=== PATIENT | female | born 1985 | race Caucasian/White ===

== ENCOUNTER 2018-07-10 10:09 | Inpatient (IN) | payer OTHER ==
[2018-07-10 10:52] VITALS: BMI 28.8
[2018-07-10 11:57] LABS: Hemoglobin 9.4 g/dL (12.0-16.0); Mean Corpuscular HGB CONC 31.7 g/dL (32.0-36.0); Mean Corpuscular Hemoglobin 24.9 pg (27.0-31.0); Mean Corpuscular Volume 78.6 fL (78.0-98.0); Mean Platelet Volume 11.4 fL (7.4-10.4); Platelet Count 224 thou/uL (130-400); RBC Distribution Width 18.1 % (11.5-14.5); Red Blood Cell (RBC) Count 3.79 mill/uL (4.20-5.40); White Blood Cell (WBC) Count 8.8 thou/uL (4.8-10.8)
[2018-07-10] MEDS ORDERED: Ondansetron PF 4 MG/2 ML Vial IVP PRN ×2 (12:23→14:45)
[2018-07-10] MEDS ORDERED: Promethazine HCl 25 MG/ML VIAL IM PRN ×3 (12:23→17:26)
[2018-07-10] MEDS ORDERED: Morphine PF 1 MG/ML SYR ONE (12:25)
[2018-07-10] MEDS ORDERED: Ondansetron PF 4 MG/2 ML Vial ONE (12:26)
[2018-07-10] MEDS ORDERED: PHENYLEPHRINE-NS 100 MCG/ML 10 ML SYRINGE ONE (12:26)
[2018-07-10] MEDS ORDERED: Oxytocin 10 UNITS/ML VIAL ONE ×2 (12:26→12:34)
[2018-07-10] MEDS ORDERED: CEFAZOLIN 2 GM/50 ML BAG ONE (12:26)
[2018-07-10] MEDS ORDERED: Ketorolac Tromethamine 30 MG/ML VIAL ONE (12:26)
[2018-07-10] MEDS ORDERED: Bicitra 30 ML UDCUP ONE ×2 (12:27)
[2018-07-10] MEDS ORDERED: Lactated Ringer's 1,000 ML IV SCH (12:30)
[2018-07-10] MEDS ORDERED: CEFAZOLIN 2 GM/50 ML BAG IVPB SCH (12:30)
[2018-07-10] MEDS ORDERED: Bicitra 30 ML UDCUP PO SCH (12:30)
[2018-07-10 13:30] LABS: Syphilis Antibody Nonreactive (Nonreactive); Syphilis Antibody Index 0.03 S/CO (<1.00 Non-Reactive)
[2018-07-10 13:31] LABS: Hep B Surf Ag Non-Reactive S/CO (NonReactive)
[2018-07-10] MEDS ORDERED: diphenhydrAMINE 50 MG/ML VIAL IVP PRN (14:45)
[2018-07-10] MEDS ORDERED: Naloxone HCl 0.4 mg/ml Vial IVP PRN ×2 (14:45)
[2018-07-10] MEDS ORDERED: Eucerin (Mineral Oil/Petrolatum,White) 30 gm Jar TOP PRN (14:45)
[2018-07-10] MEDS ORDERED: Ondansetron HCl/PF 4 MG/2 ML Vial IVP PRN (14:45)
[2018-07-10] MEDS ORDERED: Ketorolac Tromethamine 30 MG/ML VIAL IVP PRN (14:45)
[2018-07-10] MEDS ORDERED: Communication Order-Pharmacy FS SCH (14:45)
[2018-07-10] MEDS ORDERED: Promethazine HCl 25 MG SUPP PR PRN (14:45)
[2018-07-10] MEDS ORDERED: Ketorolac Tromethamine 30 MG/ML VIAL IVP SCH (14:45)
[2018-07-10] MEDS ORDERED: Naloxone HCl 0.4 mg/ml Vial IV PRN (14:45)
[2018-07-10] MEDS ORDERED: L&D-Morphine 4 MG/ML VIAL SLOW IVP PRN (14:45)
[2018-07-10] MEDS ORDERED: Meperidine HCl/PF 25 MG/ML VIAL SLOW IVP PRN (14:45)
[2018-07-10] MEDS ORDERED: HYDROmorphone 2 MG/ML VIAL SLOW IVP PRN (14:45)
[2018-07-10] MEDS ORDERED: NS / Oxytocin 40 units/1000ml 1,000 ML ONE (15:37)
--- NOTE | 2018-07-10 16:42 | PDOC.LDHP ---
Labor and Delivery H&P Chief complaint: scheduled section Current gestational age (weeks): 39 Due date: 07/16/18 Grav: 2 Para: 1 Current complications: none Abnormal US findings: No Previous surgical history: low tranverse CS Allergies/Adverse Reactions: Allergies Allergy/AdvReac Type Severity Reaction Status Date / Time No Known Allergies Allergy Unverified 07/10/18 10:50 Social history: none - Physical Exam Vital signs reviewed and normal: yes General: NAD Heart: RRR Lungs: CTAB Abdomen: gravid Extremeties: no edema FHT: category 1 - Assessment L&D Assessment: scheduled repeat section - Plan Plan: admit to L&D, to OR for section
[2018-07-10] MEDS ORDERED: NS / Oxytocin 40 units/1000ml 1,000 ML IV SCH (17:26)
[2018-07-10] MEDS ORDERED: Bisacodyl 10 MG SUPP PR PRN (17:26)
[2018-07-10] MEDS ORDERED: Adacel (T-DAP) 0.5 ML SYRINGE IM ONE (17:26)
[2018-07-10] MEDS ORDERED: diphenhydrAMINE 25 MG CAP PO PRN (17:26)
[2018-07-10] MEDS ORDERED: Lanolin Ointment 7 GM TUBE TOP PRN (17:26)
[2018-07-10] MEDS ORDERED: Varicella virus, LIVE 0.5 ML VIAL SC ONE (17:26)
[2018-07-10] MEDS ORDERED: Measles/Mumps/Rubella 10 MCG/0.5 ML VIAL SC ONE (17:26)
[2018-07-10] MEDS: Ketorolac Tromethamine 30 MG/ML VIAL IVP PRN (20:30)
[2018-07-10] MEDS: Lactated Ringer's 1,000 ML IV SCH (20:31)
[2018-07-10] MEDS: Ondansetron PF 4 MG/2 ML Vial IVP PRN (20:34)
[2018-07-10] MEDS ORDERED: Ibuprofen 800 MG TAB PO SCH (22:00)
--- NOTE | 2018-07-11 00:38 | OP ---
DATE OF PROCEDURE: 07/10/2018 PREOPERATIVE DIAGNOSES: Intrauterine at 39 weeks with a history of previous section and declined vaginal after section. POSTOPERATIVE DIAGNOSES: Intrauterine at 39 weeks with a history of previous section and declined vaginal after section. PROCEDURE PERFORMED: Repeat low transverse section using a Pfannenstiel skin incision. FINDINGS: Viable male infant weighing 3745 g or 8 pounds 4 ounces. Apgars of 9 and 9. QUANTITATIVE BLOOD LOSS: 585 mL. COMPLICATIONS: None. DETAILS OF THE PROCEDURE: The patient was consented and taken back to the operating room where spinal anesthesia was found to be adequate. She was then prepped and draped in the normal sterile fashion. A timeout was performed by the entire operative team. The incision was then marked with a marking pen tested using sharp pickups. An incision was then made with a scalpel. The incision was carried through the adipose tissue down to the underlying rectus fascia using both sharp dissection as well as cautery. Once the fascia was identified, it was incised in the midline and then the fascial incision was carried through in both lateral directions using sharp as well as cautery dissection techniques. Next, the superior aspect of the rectus fascia was grasped with 2 Natalie clamps, which was tented up and the rectus muscles were dissected off using blunt dissection as well as cautery dissection. Similarly, the inferior aspect of the fascial incision was grasped with 2 Natalie clamps, tented up and the rectus muscles were dissected off bluntly as well as sharply. Next, the rectus muscles were in the midline and the peritoneum identified. The peritoneum was then carefully grasped with 2 hemostats and entered sharply. The peritoneal incision was extended superiorly and inferiorly and bladder blade was placed in the lower abdomen. At this point, the uterus was identified and the bladder flap was then developed using pickups with teeth as well as Metzenbaum scissors in both lateral directions. The bladder flap was then dissected downwards using the clamp carrier operator's finger as well as Metzenbaum scissors. The bladder blade was replaced. The lower uterine segment was then identified and entered sharply using a clean scalpel. The uterine incision was then dissected downwards until thin layer of muscle remained and this was entered bluntly using a hemostat to avoid any injury to the baby. The uterine incision was then stretched using two fingers in both lateral directions. An amniotomy was performed artificially using a hemostat and the baby was delivered using fundal pressure in a gentle fashion. Once out, the baby's mouth and nose were bulb suctioned, cord clamped and cut, and the baby was handed to waiting attendants. Next, the uterus was exteriorized, cleared of all clots and debris and the uterine incision was repaired with #1 Monocryl in a running locking fashion. A 2nd suture of the same type was used to obtain complete hemostasis at the uterine incision. The bladder flap was reapproximated using 3-0 Monocryl. Next, patient's left and right adnexa were inspected and appeared to be within normal limits. The posterior cul-de-sac was blotted dry and hemostasis assured. One more look at the uterine incision demonstrated hemostasis. Next, the uterus was replaced back within the abdomen. The peritoneum was reapproximated using 2-0 Monocryl without difficulty. The rectus muscles were then allowed to come back together and 0 chromic was used to aid in reapproximation of the muscle as necessary. The rectus fascia was then reapproximated in a running fashion using 0 Vicryl suture. The adipose tissue was then examined and appeared to be well approximated without any obvious separations. Finally, the skin was reapproximated with 3-0 Monocryl on a Zackary needle without difficulty and Dermabond adhesive was applied to the skin. Once the glue was dry, the drapes were removed and the patient was transferred to an ambulatory bed where she was taken to recovery awake and in stable condition. Sponge, lap, and needle counts were correct x3. An amniotomy was performed artificially using a hemostat and the baby was delivered using fundal pressure in a gentle fashion. Once out, the baby's mouth and nose were bulb suctioned, cord clamped and cut, and the baby was handed to waiting attendants. Next, the uterus was exteriorized, cleared of all clots and debris and the uterine incision was repaired with #1 Monocryl in a running locking fashion. A 2nd suture of the same type was used to obtain complete hemostasis at the uterine incision. The bladder flap was reapproximated using 3-0 Monocryl. Next, patient's left and right adnexa were inspected and appeared to be within normal limits. The posterior cul-de-sac was blotted dry and hemostasis assured. One more look at the uterine incision demonstrated hemostasis. Next, the uterus was replaced back within the abdomen. The peritoneum was reapproximated using 2-0 Monocryl without difficulty. The rectus muscles were then allowed to come back together and 0 chromic was used to aid in reapproximation of the muscle as necessary. The rectus fascia was then reapproximated in a running fashion using 0 Vicryl suture. The adipose tissue was then examined and appeared to be well approximated without any obvious separations. Finally, the skin was reapproximated with 3-0 Monocryl on a Zackary needle without difficulty and Dermabond adhesive was applied to the skin. Once the glue was dry, the drapes were removed and the patient was transferred to an ambulatory bed where she was taken to recovery awake and in stable condition. Sponge, lap, and needle counts were correct x3. Job ID: [id number]
[2018-07-11] MEDS: Lactated Ringer's 1,000 ML IV SCH ×3 (02:23→18:17)
[2018-07-11] MEDS: Ketorolac Tromethamine 30 MG/ML VIAL IVP PRN ×2 (02:23→09:46)
[2018-07-11] MEDS: Docusate Calcium (SURFAK) 240 MG CAP PO SCH ×3 (02:24→23:43)
[2018-07-11] MEDS: Ferrous Sulfate 325 MG TAB PO SCH ×3 (02:24→23:44)
[2018-07-11] MEDS: Ondansetron PF 4 MG/2 ML Vial IVP PRN (02:38)
[2018-07-11] MEDS ORDERED: Zolpidem Tartrate 5 MG TAB PO PRN (02:45)
[2018-07-11 07:19] LABS: Hemoglobin 8.9 g/dL (12.0-16.0); Mean Corpuscular HGB CONC 30.8 g/dL (32.0-36.0); Mean Corpuscular Hemoglobin 24.4 pg (27.0-31.0); Mean Platelet Volume 11.1 fL (7.4-10.4); Platelet Count 217 thou/uL (130-400); RBC Distribution Width 17.6 % (11.5-14.5); Red Blood Cell (RBC) Count 3.65 mill/uL (4.20-5.40); White Blood Cell (WBC) Count 11.9 thou/uL (4.8-10.8)
--- NOTE | 2018-07-11 08:55 | PRG ---
DATE OF SERVICE: 07/11/2018 POSTOPERATIVE NOTE PRIMARY OB: Dr. Andreas Andrea. SUBJECTIVE: The patient is a 33-year-old female, who is postop day 1 status post a scheduled repeat . This morning at the time of our evaluation, she has been tolerating a liquid diet. Pandey catheter is still in place and is having good pain control with decreased lochia. OBJECTIVE: VITAL SIGNS: This morning, blood pressure 107/51, temperature 98.4, pulse of 81, respiratory rate of 20, and saturating 100% on room air. GENERAL: She appears to be in no acute distress. She is alert and oriented, cooperative, and pleasant to interact with. HEENT: Head is normocephalic, atraumatic. ABDOMEN: Fundus is firm at the umbilicus. Incision is clean, dry, and intact. EXTREMITIES: Nontender, nonedematous. LABORATORY DATA: hemoglobin is 8.9, hematocrit 28.8, and platelets of 217,000. ASSESSMENT: The patient is a 33-year-old female, postop day 1, status post a scheduled repeat section. PLAN: Plan at this time is for Pandey catheter to be removed for a trial of spontaneous void, to advance her diet to regular, and transition from the Duramorph to more regular p.o. medications for pain control. We will continue postoperative care with anticipation for discharge in the next 2 to 3 days. Job ID: [id number]
[2018-07-11] MEDS: Prenatal Vitamin 1 TAB PO SCH (10:52)
[2018-07-11] MEDS: HYDROcodone/Acetaminophen 5/325 mg Tablet PO PRN ×2 (14:52→18:52)
[2018-07-11] MEDS: Ibuprofen 800 MG TAB PO SCH ×2 (16:11→23:44)
[2018-07-12] MEDS: Ibuprofen 800 MG TAB PO SCH ×4 (00:20→22:06)
--- NOTE | 2018-07-12 00:25 | PDOC.PP ---
Post Progress Note Post Day #: POD#2 Subjective: Resting, c/o intermittent incision discomfort. PO intake tolerated: yes Flatus: no Ambulation: yes Vital Signs (12 hours) Temp Pulse Resp BP 07/11/18 17:57 97.8 F 75 14 103/59 L Weight Weight 73.936 kg - Physical Examination General: NAD Respiratory: non-labored breathing Abdominal: no distention Skin: CS incision dry & intact Neurological: no gross focal deficits Psychiatric: normal affect Result Diagrams: 07/11/18 05:59 Additional Labs: Post Labs Blood Type A POSITIVE 07/10/18 11:36 Hep Bs Antigen Non-Reactive S/CO (NonReactive) 07/10/18 11:36 - Assessment/Plan Routine postop care. Advance diet. Ambulate.
[2018-07-12] MEDS: HYDROcodone/Acetaminophen 5/325 mg Tablet PO PRN ×4 (06:37→18:28)
[2018-07-12] MEDS: Lactated Ringer's 1,000 ML IV SCH ×3 (08:50→19:24)
[2018-07-12] MEDS: Docusate Calcium (SURFAK) 240 MG CAP PO SCH ×2 (09:00→22:05)
[2018-07-12] MEDS: Ferrous Sulfate 325 MG TAB PO SCH ×2 (09:00→22:06)
[2018-07-12] MEDS: Prenatal Vitamin 1 TAB PO SCH (09:00)
[2018-07-12] MEDS: Simethicone Chewable 80 MG TAB PO PRN ×2 (10:37→18:29)
[2018-07-13] MEDS: Lactated Ringer's 1,000 ML IV SCH ×2 (04:19→12:29)
[2018-07-13] MEDS: Ibuprofen 800 MG TAB PO SCH (05:35)
[2018-07-13] MEDS: HYDROcodone/Acetaminophen 5/325 mg Tablet PO PRN (07:53)
[2018-07-13 07:54] VITALS: BP 111/61; TEMP 98.6
[2018-07-13] MEDS: Ferrous Sulfate 325 MG TAB PO SCH (09:11)
[2018-07-13] MEDS: Prenatal Vitamin 1 TAB PO SCH (09:11)
[2018-07-13] MEDS: Docusate Calcium (SURFAK) 240 MG CAP PO SCH (09:12)
== END 2018-07-13 13:05 | disposition home or self-care (01) | DRG 788 ==
LOC: L&D 10:09 → 3SW 17:19
PROVIDERS: ADMIT Obstetrics & Gynecology; ATTEND Obstetrics & Gynecology
PROC: 10D00Z1 Extraction of Products of Conception, Low, Open Approach (ICD-10-PCS; principal; 2018-07-10)
DX: O34.211 Maternal care for low transverse scar from previous cesarean delivery (principal); O75.82 Onset (spontaneous) of labor after 37 completed weeks of gestation but before 39 completed weeks gestation, with delivery by (planned) cesarean section; Z3A.39 39 weeks gestation of pregnancy; Z37.0 Single live birth
CPT/HCPCS: 36415; 51702; 85027; 86780; 87340; 90716; J0131; J1885; J2274; J2405; J2590